=== PATIENT | male | born 1945 | race Caucasian/White ===

== ENCOUNTER → 2023-06-15 | Outpatient (CLI) | payer OTHER | END | disposition home or self-care (01) | LOC: RAH 13:45 | PROVIDERS: ATTEND Internal Medicine Cardiovascular Disease | DX: I08.0 Rheumatic disorders of both mitral and aortic valves (principal); I48.0 Paroxysmal atrial fibrillation; R60.0 Localized edema; E66.01 Morbid (severe) obesity due to excess calories | CPT/HCPCS: 93306 ==